=== PATIENT | male | born 1955 | race Asian ===

== ENCOUNTER 2020-01-03 06:39 | Day surgery (SDC) | payer BC ==
[~2020-01-03] VITALS: Ht 167.6 cm; Wt 94.2 kg
[~2020-01-03 06:39] MED LIST: AMITRIPTYLINE H75 M1 PO; ASPIRIN 32325 MG/TAB PO; ASPIRIN E.C. 8181 MG PO; DEPAKENE250 MG PO; DEPAKENE250 MG/5 M PO; ELAVIL50 MG PO; FISH OIL 1000MG1 CAP PO; FLOMAX 0.40.4 MG/CAP PO; GEODON 40MG40 MG PO; GLUCOPHAGE500 MG/TAB PO; HYZAAR 25 MG-101 TAB PO; LIPITOR 10MG10 MG PO; LISINOPRIL; LOPRESSOR 550 MG/TAB PO; MULTIVITAMIN1 CTB PO; NATURAL IRON65 MG PO; NORVASC 5MG5 MG/TAB PO; PRINZIDE 25 MG-1 TAB PO; SYNTHROID 0.0.025 MG PO; ZIPRASIDONE
[2020-01-03 07:11] VITALS: BP 142/82; PULSE 69; TEMP 97.3
[2020-01-03] MEDS ORDERED: GEODON 40MG40 MG PO (07:22)
[2020-01-03] MEDS ORDERED: SYNTHROID0.075 MG/T PO (07:22)
[2020-01-03] MEDS ORDERED: AMITRIPTYLINE H25 M1 PO (07:23)
[2020-01-03] MEDS ORDERED: PROSCAR 5MG5 MG PO (07:23)
[2020-01-03] MEDS ORDERED: LIPITOR20 MG PO (07:24)
[2020-01-03] MEDS ORDERED: LOPRESSOR100 MG PO (07:25)
[2020-01-03] MEDS ORDERED: GLUCOPHAGE1000 MG PO (07:27)
[2020-01-03] MEDS ORDERED: ONE-A-DAY ESSE1 EACH PO (07:28)
--- NOTE | 2020-01-03 07:30 | NUR ---
TO RM AT 0650- CALL LIGHT IN REACH AT BEDSIDE.
[2020-01-03 08:20] VITALS: BP 121/72; PULSE 61; TEMP 96.9
--- NOTE | 2020-01-03 08:20 | NUR ---
Pt returns from endo procedure via cart. Pt ambulates from cart to recliner with RN assist. Monitors on and alarms set. Call light within reach. Pt alert and oriented. Report received from Daphne. Patient denies pain or nausea. Pt requests muffin, applesauce, crackers, and juice. Pt's remains in room.
[2020-01-03 08:30] VITALS: BP 112/68; PULSE 65
[2020-01-03 08:45] VITALS: BP 118/72; PULSE 75
--- NOTE | 2020-01-03 08:45 | NUR ---
Pt taking food and drink well. No complications voiced.
[2020-01-03 09:00] VITALS: BP 129/88; PULSE 67
--- NOTE | 2020-01-03 09:20 | NUR ---
Finish giving discharge instructions to patient and . All questions answered to their satisfaction. Handed to them are a thank you card, discharge instructions, diagnosis information, a discharge med sheet, and procedural photos.
--- NOTE | 2020-01-03 09:25 | NUR ---
Pt transferred out of hospital via wheelchair and EZEQUIEL Padilla, assist to private vehicle driven by .
== END 2020-01-03 09:25 | disposition home or self-care (01) ==
LOC: SDCO 06:39
DX: Z12.11 Encounter for screening for malignant neoplasm of colon (principal); K57.30 Diverticulosis of large intestine without perforation or abscess without bleeding; Z86.010 Personal history of colon polyps; I10 Essential (primary) hypertension; E78.00 Pure hypercholesterolemia, unspecified; E11.9 Type 2 diabetes mellitus without complications
CPT/HCPCS: J2250; J3010; J7030